=== PATIENT | female | born 1965 | race Caucasian/White ===

== ENCOUNTER 2021-06-20 12:15 | Inpatient (IN) | payer OTHER ==
[~2021-06-20] VITALS: Ht 170.2 cm; Wt 130.3 kg
[2021-06-20 12:58] VITALS: BP 105/73
[2021-06-20 13:27] LABS: BASO # 0.2 x10^3/uL (0.0-0.2); BASO % 1 % (0-3); EOS # 0.2 x10^3/uL (0.0-0.7); EOS % 1 % (0-3); HEMATOCRIT 44.3 % (36.0-47.0); HEMOGLOBIN 14.9 g/dL (12.0-15.5); LYMPH # 4.1 x10^3/uL (1.0-4.8); LYMPH % 28 % (24-48); MEAN CORPUSCULAR HEMOGLOBIN 30 pg (25-35); MEAN CORPUSCULAR HGB CONC 34 g/dL (31-37); MEAN CORPUSCULAR VOLUME 90 fL (79-100); MONO # 0.8 x10^3/uL (0.0-1.1); MONO % 6 % (0-9); NEUT # 9.2 x10^3/uL (1.8-7.7); NEUT % 63 % (31-73); PLATELET COUNT 400 x10^3/uL (140-400); RED BLOOD COUNT 4.94 x10^6/uL (3.50-5.40); RED CELL DISTRIBUTION WIDTH 13.7 % (11.5-14.5); WHITE BLOOD COUNT 14.5 x10^3/uL (4.0-11.0)
[2021-06-20 13:40] LABS: ALBUMIN 3.9 g/dL (3.4-5.0); TOTAL PROTEIN 7.9 g/dL (6.4-8.2)
[2021-06-20 13:41] LABS: CALCIUM 9.3 mg/dL (8.5-10.1); CHOLESTEROL/HDL RATIO 6.3; CREATININE 0.9 mg/dL (0.6-1.0); GFR 65.2; POTASSIUM 3.7 mmol/L (3.5-5.1); TOTAL BILIRUBIN 0.4 mg/dL (0.2-1.0)
--- NOTE | 2021-06-20 14:24 | EKG ---
[facility] [address] [place] [address] Test Date: 2021-06-20 Test Time: 14:19:43 Pat Name: ESTEPHANIA FUCHS Department: Room: 207 1 Gender: F Communications Engineering Technician: TRENT : 1965 Requested By: GEOVANNI SEYMOUR Order Number: [id number] Reading MD: Antonio Regalado Measurements Intervals [place] Rate: 99 P: 39 AR: 132 QRS: -1 QRSD: 90 T: 52 QT: 350 QTc: 455 Interpretive Statements SINUS RHYTHM VENTRICULAR PREMATURE COMPLEX(ES) LEFTWARD AXIS ABNORMAL ECG RI6.02 No previous ECG available for comparison Electronically Signed On 06-30-2021 9:05:18 CDT by Antonio Regalado
[2021-06-20] MEDS: IPRATRPIUM/ALBUTEROL 0.5/2.5MG 3 ML NEBU. NEB SCH ×3 (14:25→19:51)
[2021-06-20 15:00] VITALS: BP 119/54
--- NOTE | 2021-06-20 15:33 | RAD ---
XR CHEST 1V History: Reason: soa / Spl. Instructions: / History: Comparison: December 14, 2013 Findings: No consolidation or pleural effusion. Normal heart size. No pneumothorax. Calcified right midlung pul monary nodules, likely prior granulomatous disease, unchanged. Impression: 1. No acute cardiopulmonary process. Electronically signed by: Rashid Teague DO (06/20/2021 3:31 PM) [id number]
[2021-06-20] MEDS ORDERED: LISI2.5T12 PO (15:55)
[2021-06-20] MEDS ORDERED: METF500T16 PO (15:55)
[2021-06-20] MEDS ORDERED: CLON-77 PO (15:55)
[2021-06-20] MEDS ORDERED: ALBU2.5V8 INH (15:55)
[2021-06-20] MEDS ORDERED: BUPR200T2 PO (15:55)
[2021-06-20] MEDS ORDERED: CARI3CAP PO (15:55)
[2021-06-20] MEDS ORDERED: FLUT1BLS12 IH (15:55)
[2021-06-20] MEDS ORDERED: OXYB5TAB10 PO (15:55)
[2021-06-20] MEDS ORDERED: MECL-75 PO (15:55)
[2021-06-20] MEDS ORDERED: UMEC1DIS IH (15:55)
[2021-06-20] MEDS ORDERED: DEXT25CP PO (15:55)
[2021-06-20] MEDS ORDERED: LAMO100T8 PO (15:55)
[2021-06-20] MEDS ORDERED: ALBUTEROL SULFATE 2.5 MG/3 ML NEBU. INH PRN (16:15)
[2021-06-20] MEDS ORDERED: MECLIZINE HCL 12.5 MG TABLET. PO PRN (16:30)
[2021-06-20] MEDS ORDERED: IBUPROFEN 400 MG TABLET. PO PRN (16:45)
--- NOTE | 2021-06-20 16:46 | PDOC2 ---
ULISES MORSE R[employer]EW[employer] BROKER 06/20/21 1646: CARDIAC CONSULT DATE OF CONSULT Date of Consult DATE: 06/20/21 TIME: 16:34 REASON FOR CONSULT Reason for Consult: Chest pain, shortness of breath REFERRING PHYSICIAN Referring Physician: Dr. Lozada SOURCE Source: Chart review, Patient HISTORY OF PRESENT ILLNESS HISTORY OF PRESENT ILLNESS This is a 56 yo female who presented secondary to shortness of breath and abnormal EKG. Patient reports she has been working very hard and "overdoing" it recently as she has been moving. Has a history of COPD and continued to smoke. Reports chronic KNOWLES. Recently has been short of breath with exertion. Experiencing pressure in her central chest when having difficultly breathing. Reports she was short of breathing just showering this morning. Reports intermittent LE edema. Not any worse than usual recently. Lays on her side in bed and has not had more difficulty. Thought she had exacerbation of her COPD so she went to her primary care for inhaler/steroids. EKG was conducted and patient was noted to be having very frequent PVC's. Due to symptoms and abnormal EKG, patient was admitted directly to the hospital. No previous h/o CAD. Denies any recent illness or fevers. PAST MEDICAL HISTORY Cardiovascular: HTN, Hyperlipidemia Pulmonary: COPD GI: GERD Hepatobiliary: Other (fatty liver ) Psych: Anxiety, Depression Endocrine: Diabetes PAST SURGICAL HISTORY Past Surgical History: Tubal Ligation, Tonsillectomy FAMILY HISTORY Family History: Heart Disease (father ) SOCIAL HISTORY Smoke: <1 pack per day ALCOHOL: occassional Drugs: None Lives: with Family CURRENT MEDICATIONS CURRENT MEDICATIONS Current Medications Medications (Trade) Dose Ordered Sig/Елена Route PRN Reason Start Time Stop Time Status Last Admin Dose Admin Albuterol/ Ipratropium (Duoneb) 3 ml RTQID NEB 06/20/21 13:30 06/20/21 15:18 ALLERGIES ALLERGIES: Coded Allergies: hydroxyzine (Verified Allergy, Intermediate, 12/31/13) influenza virus vaccine, specific (Verified Allergy, Intermediate, 12/31/13) ketorolac (Verified Allergy, Intermediate, 12/31/13) divalproex sodium (Verified Adverse Reaction, Mild, 06/20/21) hair falls out ROS Review of System 14 point ROS conducted with pertinent positives noted above in HPI PHYSICAL EXAM General: Alert, Oriented X3, Cooperative, No acute distress HEENT: Atraumatic Lungs: Other (diffuse wheezes) Heart: Other (SR/ST with frequent PVC's ) Abdomen: Soft Extremities: Other (trace bilateral LE pedal edema ) Skin: No significant lesion Neuro: Normal speech, Sensation intact Psych/Mental Status: Mental status NL, Mood NL MUSCULOSKELETAL: Osteoarthritic changes both hands VITALS/I&O VITALS/I&O: Vital Signs Date Time Temp Pulse Resp B/P (MAP) Pulse Ox O2 Delivery O2 Flow Rate FiO2 06/20/21 15:18 96 Room Air 06/20/21 15:00 98.2 99 22 119/54 (75) 98.2 LABS Lab: Laboratory Tests Test 06/20/21 13:20 White Blood Count 14.5 x10^3/uL (4.0-11.0) H Red Blood Count 4.94 x10^6/uL (3.50-5.40) Hemoglobin 14.9 g/dL (12.0-15.5) Hematocrit 44.3 % (36.0-47.0) Mean Corpuscular Volume 90 fL (79-100) Mean Corpuscular Hemoglobin 30 pg (25-35) Mean Corpuscular Hemoglobin Concent 34 g/dL (31-37) Red Cell Distribution Width 13.7 % (11.5-14.5) Platelet Count 400 x10^3/uL (140-400) Neutrophils (%) (Auto) 63 % (31-73) Lymphocytes (%) (Auto) 28 % (24-48) Monocytes (%) (Auto) 6 % (0-9) Eosinophils (%) (Auto) 1 % (0-3) Basophils (%) (Auto) 1 % (0-3) Neutrophils # (Auto) 9.2 x10^3/uL (1.8-7.7) H Lymphocytes # (Auto) 4.1 x10^3/uL (1.0-4.8) Monocytes # (Auto) 0.8 x10^3/uL (0.0-1.1) Eosinophils # (Auto) 0.2 x10^3/uL (0.0-0.7) Basophils # (Auto) 0.2 x10^3/uL (0.0-0.2) D-Dimer (Mariana) 0.32 ug/mlFEU (0.00-0.50) Sodium Level 141 mmol/L (136-145) Potassium Level 3.7 mmol/L (3.5-5.1) Chloride Level 103 mmol/L (98-107) Carbon Dioxide Level 29 mmol/L (21-32) Anion Gap 9 (6-14) Blood Urea Nitrogen 13 mg/dL (7-20) Creatinine 0.9 mg/dL (0.6-1.0) Estimated GFR (Cockcroft-Gault) 65.2 BUN/Creatinine Ratio 14 (6-20) Glucose Level 108 mg/dL (70-99) H Calcium Level 9.3 mg/dL (8.5-10.1) Magnesium Level 2.1 mg/dL (1.8-2.4) Total Bilirubin 0.4 mg/dL (0.2-1.0) Aspartate Amino Transferase (AST) 66 U/L (15-37) H Alanine Aminotransferase (ALT) 95 U/L (14-59) H Alkaline Phosphatase 120 U/L (46-116) H Troponin I High Sensitivity 7 ng/L (4-50) JY-Npi-H-Type Natriuretic Peptide 34 pg/mL (0-124) Total Protein 7.9 g/dL (6.4-8.2) Albumin 3.9 g/dL (3.4-5.0) Albumin/Globulin Ratio 1.0 (1.0-1.7) Triglycerides Level 223 mg/dL (0-150) H Cholesterol Level 228 mg/dL (0-200) H LDL Cholesterol, Calculated 147 mg/dL (0-100) H VLDL Cholesterol, Calculated 45 mg/dL (0-40) H Non-HDL Cholesterol Calculated 192 mg/dL (0-129) H HDL Cholesterol 36 mg/dL (40-60) L Cholesterol/HDL Ratio 6.3 Thyroid Stimulating Hormone (TSH) 1.798 uIU/mL (0.358-3.74) Laboratory Tests 06/20/21 13:20 Laboratory Tests 06/20/21 13:20 ASSESSMENT/PLAN ASSESSMENT/PLAN 1. AE COPD with underlying tobaccoism 2. Chest pressure; suspect this is pulmonary related 3. Arrhythmia; frequent PVC's 4. Hypertension 5. Hyperlipidemia 6. Obesity Recommendations Trend trop Lipids TSH Mg Could consider BB for arrhythmia suppression, but will hold off for now given wheezing. CXR pending Echo to assess LV systolic function Pulmonary optimization Discussed/encouraged tobacco cessation Probable outpatient ischemic evaluation NICK HERNANDEZ MD 06/20/21 1801: CARDIAC CONSULT ASSESSMENT/PLAN ASSESSMENT/PLAN Patient seen and examined She reports feeling mildly better. She denies chest pain. I agree with our nurse practitioners assessment and plan. AE COPD with underlying tobacco abuse. Chest x-ray with no acute changes. Pulmonary treatments as above. Chest pressure; suspect this is pulmonary related. Largely resolved. No acute ischemic EKG changes. Would rule out for ND. Probable outpatient ischemia evaluation. We will check an echo for LV function. Arrhythmia; frequent PVC's. Continue to monitor. Holding beta-linda secondary to exacerbation of COPD and wheezing Hypertension. Continue medications and monitor. Hyperlipidemia. Checking lipids. Obesity ULISES MORSE APRN Jun 20, 2021 16:46 NICK HERNANDEZ MD Jun 20, 2021 18:01
[2021-06-20 19:00] VITALS: BP 151/68
--- NOTE | 2021-06-20 19:10 | HP ---
DATE OF SERVICE: 06/20/2021 ADMIT DATE: 06/20/2021 CHIEF COMPLAINT: Chest pain and shortness of breath. HISTORY OF PRESENT ILLNESS: A 56-year-old white female seen in our office on the day of admission with 2 days of episodic, nonexertional and exertional chest pain "crushing" at one point with no clear radiation. It did awaken her one time and she reported some orthopnea. She denied cough, sputum, fever, chills, hemoptysis or pleuritic type pain. She had been seen in the office 6 weeks prior and a chest x-ray ordered, but the patient never had the x-ray done. She has been using her albuterol inhaler multiple times a day without much benefit. She has no cardiovascular history. PAST MEDICAL HISTORY: History of bipolar disorder and depression, taking a variety of medicines from the [facility] including Lamictal, Wellbutrin, clonazepam, Adderall, and Vraylar. ALLERGIES: LISTED TO DEPAKOTE. She also takes lisinopril and albuterol inhaler and is a very mild diabetic, taking metformin 1 daily with good results. SOCIAL HISTORY: Smokes about a half pack a day and has smoked for at least 20-25 years, , not employed to my knowledge. Alcohol use is limited only to once or twice a month. REVIEW OF SYSTEMS: No other complaints. OBJECTIVE: ENT: All within normal limits. NECK: No masses, nodes or bruits. LUNGS: Decreased breath sounds. No overt wheezing or tachypnea. CARDIOVASCULAR: Regular rate. No irregular beat or tachycardia, but she is having very frequent VPCs, which are on EKG unifocal in nature. There are no ischemic changes on EKG. ABDOMEN: Benign, obese, and nontender. EXTREMITIES: Good pedal and radial pulses. No joint or skin lesions. No clubbing is noted. NEUROLOGIC: Physiologic, anxious, oriented x 4. No focal findings. ASSESSMENT: Chronic obstructive pulmonary disease, mild diabetes with ongoing exertional dyspnea and recent exertional and nonexertional chest pain. Certainly a high risk for coronary artery disease, which has not been previously diagnosed. PLAN: Chest x-ray, multiple labs, echo and cardiac consultation as she will likely need at least a consideration of Lexiscan or possibly a cardiac catheterization if troponins are elevated. She is aware of the various possibilities of diagnosis and consents to admission. SHIRA DR: Tk TID: [id number]
[2021-06-20] MEDS: BUDESONIDE 0.5 MG/2 ML NEBU. NEB SCH (19:51)
[2021-06-20] MEDS ORDERED: BUDESONIDE 0.5 MG/2 ML NEBU. NEB SCH (20:00)
[2021-06-20] MEDS ORDERED: OXYBUTYNIN CHLORIDE 5 MG TABLET PO SCH (21:00)
[2021-06-20] MEDS ORDERED: traZODone 100 MG TABLET. PO SCH (21:00)
[2021-06-20] MEDS ORDERED: SALMETEROL IH SCH (21:00)
[2021-06-20] MEDS ORDERED: TRIAMCINOLONE ACETONIDE 0.1% TOPICAL CREAM 15GM TUBE. TP SCH (21:00)
[2021-06-20] MEDS ORDERED: clonazePAM 0.5 MG TABLET PO SCH (21:00)
[2021-06-20] MEDS ORDERED: FLUTICASONE PROPION IH SCH (21:00)
[2021-06-20] MEDS ORDERED: [UNRECOGNIZED DRUG - OTHER] IH SCH (21:00)
[2021-06-20 23:00] VITALS: BP 130/66
[2021-06-21 03:00] VITALS: BP 103/58
--- NOTE | 2021-06-21 07:02 | NUR ---
PT out to desk - reported leaving AMA - wanted to go on vacation. Pt educated about necessity for following up with PCP. Pt verbalized understanding.
[2021-06-21] MEDS: IPRATRPIUM/ALBUTEROL 0.5/2.5MG 3 ML NEBU. NEB SCH (08:00)
[2021-06-21] MEDS: BUDESONIDE 0.5 MG/2 ML NEBU. NEB SCH (08:00)
[2021-06-21] MEDS ORDERED: AMPHETAMINE PO SCH (09:00)
[2021-06-21] MEDS ORDERED: DEXTROAMPHETAMINE PO SCH (09:00)
[2021-06-21] MEDS ORDERED: metFORMIN 500 MG TABLET PO SCH (09:00)
[2021-06-21] MEDS ORDERED: LISINOPRIL 5 MG TABLET. PO SCH (09:00)
[2021-06-21] MEDS ORDERED: buPROPion SR 100 MG TABLET.SA. PO SCH (09:00)
[2021-06-21] MEDS ORDERED: NON FORMULARY ITEM (Umeclidinium Brm/Vilanterol Tr (Anoro Ellipta 62.5-25 Mcg Inh) 1 EACH) IH SCH (09:00)
[2021-06-21] MEDS ORDERED: lamoTRIgine 100 MG TABLET. PO SCH (09:00)
[2021-06-21] MEDS ORDERED: NON FORMULARY ITEM (Cariprazine Hydrochloride (Vraylar) 1 CAP) PO SCH (09:00)
--- NOTE | 2021-06-21 09:02 | PDOC ---
Provider Note Date of Service: DATE: 06/21/21 TIME: 09:00 Provider Note [id number] Justifications for Admission Other Justification GEOVANNI SEYMOUR MD Jun 21, 2021 09:02
--- NOTE | 2021-06-21 16:08 | DS ---
DATE OF DISCHARGE: 06/21/2021 HOSPITAL SUMMARY: The patient was admitted with episodic flushing, chest pain with exertional and nonexertional in nature with many risk factors for coronary artery disease. Laboratory studies were all unremarkable. She is awaiting cardiac consultation for further evaluation for need of cardiac testing as a source of the pain. Chest x-ray was clear as well. The patient left against medical advice of early on the morning after admission and signed out AMA accordingly and fully aware of the possible consequences of decision as her chest pain is not diagnosed and certainly advanced coronary artery disease is at the top of the list of possibilities. FINAL DIAGNOSIS: Recurrent chest pain, etiology undetermined. OPERATIONS, PROCEDURES, COMPLICATIONS, AND CONSULTATIONS: None. DISPOSITION: No discharge instructions were given as he left AMA. Home meds remain the same. MADY/RAUL/[facility] [place]: MADY/glo TID: [id number]
== END 2021-06-21 06:58 | disposition left against medical advice (07) | DRG 313 ==
LOC: 2 NORTH 12:15
PROVIDERS: ADMIT Family Medicine; ATTEND Family Medicine
DX: R07.89 Other chest pain (principal); Z68.42 Body mass index [BMI] 45.0-49.9, adult; E11.9 Type 2 diabetes mellitus without complications; E66.9 Obesity, unspecified; E78.5 Hyperlipidemia, unspecified; F17.210 Nicotine dependence, cigarettes, uncomplicated; F31.9 Bipolar disorder, unspecified; I10 Essential (primary) hypertension; J44.9 Chronic obstructive pulmonary disease, unspecified; K76.0 Fatty (change of) liver, not elsewhere classified; Z82.49 Family history of ischemic heart disease and other diseases of the circulatory system; F41.9 Anxiety disorder, unspecified; K21.9 Gastro-esophageal reflux disease without esophagitis; Z53.29 Procedure and treatment not carried out because of patient's decision for other reasons
CPT/HCPCS: 36415; 71045; 80053; 80061; 83735; 83880; 84443; 84484; 85025; 85379; 93005; 94640; G0378; J7626